=== PATIENT | female | born 1980 | race Caucasian/White ===

== ENCOUNTER → 2020-06-16 13:21 | Outpatient (BNVA) | payer OTHER, SELFPAY | PROVIDERS: PCP Pediatrics; Visit Provider Nurse Practitioner | DX: K21.9 Gastro-esophageal reflux disease without esophagitis (principal); R06.00 Dyspnea, unspecified; R07.89 Other chest pain | CPT/HCPCS: 99202 ==

== ENCOUNTER → 2020-07-02 16:00 | Outpatient (BNVA) | payer OTHER, SELFPAY | PROVIDERS: PCP Pediatrics; Visit Provider Nurse Practitioner | DX: Z76.89 Persons encountering health services in other specified circumstances (principal) ==

== ENCOUNTER → 2020-07-17 10:45 | Outpatient (BNVA) | payer OTHER, SELFPAY | PROVIDERS: PCP Pediatrics; Visit Provider Nurse Practitioner Family | DX: R06.00 Dyspnea, unspecified (principal); R07.89 Other chest pain; K21.9 Gastro-esophageal reflux disease without esophagitis | CPT/HCPCS: 93005; 99202 ==

== ENCOUNTER → 2020-08-15 08:33 | Outpatient (REF) | payer OTHER, SELFPAY ==
--- NOTE | ~2020-08-15 | XR_ITS ---
EXAMINATION: XR CHEST CLINICAL INFORMATION: R07.89 - Other chest pain COMPARISON: None TECHNIQUE: 2 views of the chest were obtained. FINDINGS: The lungs are clear. There is no pneumothorax, pleural reaction, airspace consolidation, or effusion. No groundglass opacity. The heart is normal in size and the hilar and mediastinal contours are normal. Bony structures are unremarkable. XR/XR chest 2V IMPRESSION: Unremarkable examination.
--- NOTE | 2020-08-15 08:40 | CA_ITS ---
Transthoracic Echocardiogram Patient (Last, First, Middle): Mahsa Thompson, Gender: Female Date of : 1980 Age: 39 Procedure Date: 08/15/2020 Procedure Type: Transthoracic Echocardiogram Location: OP Height: 157. cm Weight: 71. kg BSA: 1.72 m2 Heart Rate: bpm BP: 110 / 71 mmHg Senior Director Of [employer]: BRANT Referring MD: Jenna Taylor NP-Marie Member Service Specialist: Cuauhtemoc Lemus MD Symptoms: R06.02 - Shortness of breath Study Quality: Fair ECG Rhythm: Sinus Conclusions: - Normal study Findings Left Ventricle Normal left ventricular size, thickness, and systolic function. The visually estimated ejection fraction is between 65-70%. Diastolic function is normal for age. Right Ventricle Normal right ventricular cavity size and systolic function. Atria Both atria are normal in size. Interatrial shunt cannot be excluded. Aortic Valve Normal aortic valve structure and function. There is no aortic valve stenosis. There is no aortic valve regurgitation. Mitral Valve Normal mitral valve structure and function. There is trace mitral valve regurgitation. There is no mitral valve stenosis. Pulmonic Valve The pulmonic valve was not well visualized. Tricuspid Valve Likely normal tricuspid valve structure and function. There is trace tricuspid valve regurgitation. The right ventricular systolic pressure is normal. The right ventricular systolic pressure is 25 mmHg. Normal right atrial pressure. There is no evidence of pulmonary hypertension. Great Vessels All visible segments of the aorta are normal in size. The pulmonary artery was not well visualized. Venous The inferior vena cava is normal in size and collapses greater than 50% with inspiration. Pericardium/Pleural There is no evidence of pericardial effusion. Prior Study Comparison No prior study available for comparison. Measurements 2D Linear Measurements IVSd: 0.75 0.6-0.9/0.6-1.0 cm LVIDd: 4.22 3.9-5.3/4.2-5.9 cm LVIDd Index: 2.45 2.4-3.2/2.2-3.1 cm/m2 LVIDs: 2.69 2.0-3.6 cm LVPWd: 0.61 0.7-1.1 cm Ao Root: 2.50 2.1-3.5 cm LA Diam: 2.80 2.7-3.8/3.0-4.0 cm LAIDs Index: 1.63 1.5-2.3 cm/m2 LV Mass: 102.73 67-162/88-224 g LV Mass Index: 59.73 43-95/49-115 g/m2 LVOT Diam: 1.90 3.0+(-)1.3 cm 2D Systolic Function EF 4C: 71.60 >55% Mitral Valve MV Pk E: 0.95 MV PK A: 0.56 MV Decel Time: 194.00 E/A: 1.70 E'Lateral: 16.40 E'Medial: 13.30 E/E' Med: 7.20 E/E' Lat: 5.80 PHT: 57.00 MVA PHT: 3.86 Decel Pitt: 4.91 Aortic Valve AoV Pk Joby: 1.48 AoV Pk Grad: 9.00 LVOT LVOT Pk Joby: 1.32 LVOT Mn Joby: 0.81 LVOT VTI: 0.25 LVOT Pk Grad: 7.00 LVOT Mn Grad: 3.00 LVOT Diam: 1.90 LVOT Area: 2.84 Diastolic Function MV Pk E: 0.95 MV Pk A: 0.56 E/A: 1.70 E'Medial: 13.30 E/E' Med: 7.20 E' Laterial: 16.40 E/E' Lat: 5.80 Tricuspid Valve TR Pk Joby: 2.32 TR Pk Grad: 22.00 RA Press: 3.00 RVSP: 25.00 Great Vessels Aorta Ao Root-2D: 2.50 2.0-3.7 cm Ao Asc: 2.70 2.1-3.4 cm Updated in Other Vendor System with Status of Final Cuauhtemoc Lemus MD electronically signed on 08/15/2020 4:23:21 PM with status of Final
--- NOTE | 2020-08-15 08:40 | CA_ITS ---
Acquisition Time: 2020-08-15 10:16:18 Total Exercise Time: 00:07:47 Test Indications: K21.9 Medications: SEE CHART Protocol: MELISSA Max HR: 169 BPM 93% of Pred: 181 BPM Max BP: 154/076 mmHG Max Work Load: 9.7 METS Exercise stress test using Melissa protocol, total of 7 min 47 sec. Pt tolerated well. METS 9.70, TAPHR up 93 %. to Denies any anginal sx. EKG with no arrhythmias, no ischemic changes seen during exercsice or in recovery. Normotensive response to exercise. Test reviewed with Dr. Lemus. Referred By: Jenna Taylor Overread By: Marj Price
== END ==
LOC: HO.CARD 08:33
PROVIDERS: PCP Pediatrics; Visit Provider Nurse Practitioner Family
DX: R07.9 Chest pain, unspecified (principal); R06.02 Shortness of breath; K21.9 Gastro-esophageal reflux disease without esophagitis
CPT/HCPCS: 71046; 93017; 93306

== ENCOUNTER → 2020-08-20 10:00 | Outpatient (BNVA) | payer OTHER, SELFPAY | PROVIDERS: PCP Pediatrics; Visit Provider Nurse Practitioner Family ==

== ENCOUNTER 2020-10-09 08:14 | Outpatient (REF) | payer OTHER, SELFPAY ==
--- NOTE | ~2020-10-09 | CT_ITS ---
EXAMINATION: CT ABDOMEN AND PELVIS WITH CONTRAST CLINICAL INFORMATION: Unspecified abdominal pain. COMPARISON: Chest x-ray August 2020 TECHNIQUE: Multidetector volumetric images were obtained from the superior aspect of the liver through the pubic symphysis following administration 85 mL of Omnipaque 350 intravenous contrast. Sagittal and coronal reformatted images were obtained on the technologist's workstation. Oral contrast: No. This CT examination was performed using dose optimization techniques as appropriate, variously including the following: *Automated exposure control *Adjustment of mA and/or kV according to patient size (this includes techniques or standardized protocols for targeted exams where dose is matched to indication/reason for exam; i.e. extremities or head) *Use of iterative reconstruction technique DLP: 429 mGy-cm FINDINGS: LUNG BASES: The visualized lung bases are unremarkable. LIVER, GALLBLADDER, AND BILIARY TREE: The liver is normal in size, shape, and attenuation. No focal hepatic lesion or biliary ductal dilatation is present. The gallbladder is unremarkable with no evidence of radiopaque gallstones, gallbladder wall thickening, or obvious pericholecystic inflammatory changes. PANCREAS: Unremarkable. SPLEEN: Unremarkable. ADRENAL GLANDS: Unremarkable. KIDNEYS AND URETERS: The kidneys are normal in size, shape, and attenuation. No hydronephrosis, hydroureter, or calculi seen. No perinephric stranding. BLADDER: Unremarkable. GASTROINTESTINAL TRACT: The small and large bowel are unremarkable. The appendix is unremarkable. ABDOMINAL WALL: No significant hernia is appreciated. LYMPH NODES: Normal. VASCULAR: Unremarkable. PELVIC VISCERA: 3 cm right ovarian cyst noted. OSSEOUS STRUCTURES: Unremarkable. CT/CT abdomen pelvis w con IMPRESSION: No definite etiology for the patient's reported symptoms. Incidental note made of a simple-appearing right ovarian cyst.
== END 2020-10-09 08:15 | disposition home or self-care (01) ==
LOC: HO.CT 08:14
PROVIDERS: Visit Provider Nurse Practitioner
DX: R10.9 Unspecified abdominal pain (principal); K21.9 Gastro-esophageal reflux disease without esophagitis
CPT/HCPCS: 74177

== ENCOUNTER → 2020-10-21 08:52 | Outpatient (BNVA) | payer OTHER, SELFPAY | PROVIDERS: PCP Pediatrics; Visit Provider Nurse Practitioner ==

== ENCOUNTER 2020-10-29 10:07 | Outpatient (REF) | payer OTHER, SELFPAY ==
--- NOTE | ~2020-10-29 | FL_ITS ---
EXAMINATION: XR GI SERIES CLINICAL INFORMATION: Abdominal pain. COMPARISON: None TECHNIQUE: The patient was given effervescent granules mixed with water which were followed by thick and thin separations of barium vertebral contrast evaluation. FINDINGS: The esophageal mucosal pattern is normal. No stricture or ulceration is identified. No hiatal hernia is seen. There is some mild thickening of the gastric rugal folds. The duodenal bulb and sweep appear normal. No gastroesophageal reflux was elicited during the examination. FLUOROSCOPY TIME: 1.5 mm DOSE AREA PRODUCT: 12.045 uGy-m2 (microgray-meter squared) FL/FL upper GI series IMPRESSION: Mild nonspecific thickening of the gastric rugal folds without a discrete lesion. No reflux. Otherwise, remainder of the study is normal.
== END 2020-10-29 10:08 | disposition home or self-care (01) ==
LOC: HO.XRAY 10:07
PROVIDERS: Visit Provider Nurse Practitioner
DX: R10.9 Unspecified abdominal pain (principal); K21.9 Gastro-esophageal reflux disease without esophagitis
CPT/HCPCS: 74240

== ENCOUNTER → 2020-11-06 08:47 | Outpatient (BNVA) | payer OTHER, SELFPAY | PROVIDERS: PCP Pediatrics; Visit Provider Nurse Practitioner ==

== ENCOUNTER → 2020-11-20 13:28 | Outpatient (REF) | payer OTHER, SELFPAY ==
--- NOTE | ~2020-11-20 | NM_ITS ---
EXAMINATION: NUCLEAR MEDICINE HEPATOBILIARY SCAN WITH CCK CLINICAL INFORMATION: Functional interstitial disorder. COMPARISON: CT abdomen and pelvis 10/09/2020 TECHNIQUE: Intravenous administration of 5 mCi of 99m Tc mebrofenin, imaging over right upper quadrant was obtained up to 60 minutes. At 60 minutes 1.1 mcg of CCK was administered and further imaging was obtained up to 30 minutes. FINDINGS: There is prompt hepatic uptake without any focal defects. Common bile duct is visualized by 10 minutes. Small bowel activity is visualized by 14 minutes. Gallbladder is visualized by 34 minutes. Post CCK gallbladder ejection fraction at 30 minutes is 87%. NM/NM hepatobiliary w pharm IMPRESSION: Normal hepatic uptake without focal defects. Patent CBD and cystic duct. Normal gallbladder ejection fraction at 30 minutes measuring 87%.
== END ==
LOC: HO.NUCMED 13:28
PROVIDERS: PCP Pediatrics; Visit Provider Nurse Practitioner
DX: K59.9 Functional intestinal disorder, unspecified (principal)
CPT/HCPCS: 78227; A9537; J2805

== ENCOUNTER → 2020-12-26 15:22 | Outpatient (BNVA) | payer OTHER, SELFPAY | PROVIDERS: PCP Pediatrics; Visit Provider Nurse Practitioner ==

== ENCOUNTER 2020-12-31 11:02 | Outpatient (REF) | payer OTHER, SELFPAY ==
[2020-12-31 13:02] LABS: Blood Urea Nitrogen 16 mg/dL (9-16); Estimated Glomerular Filt Rate > 60
[2021-01-04 21:17] LABS: Gastrin 115 pg/mL (<=100)
== END 2020-12-31 11:03 | disposition home or self-care (01) ==
LOC: HO.LAB 11:02
PROVIDERS: PCP Pediatrics; Visit Provider Nurse Practitioner
DX: R06.00 Dyspnea, unspecified (principal); K21.9 Gastro-esophageal reflux disease without esophagitis; R10.9 Unspecified abdominal pain
CPT/HCPCS: 36415; 82565; 82941; 84520

== ENCOUNTER → 2021-02-10 15:20 | Outpatient (BNVA) | payer OTHER, SELFPAY | PROVIDERS: PCP Pediatrics; Visit Provider Nurse Practitioner ==

== ENCOUNTER → 2021-03-30 13:55 | Outpatient (BNVA) | payer OTHER, SELFPAY | PROVIDERS: PCP Pediatrics; Visit Provider Nurse Practitioner ==

== ENCOUNTER → 2021-09-08 15:18 | Outpatient (BNVA) | payer OTHER, SELFPAY | PROVIDERS: PCP Pediatrics; Referring Provider Pediatrics; Visit Provider Nurse Practitioner | DX: K59.9 Functional intestinal disorder, unspecified (principal); K21.9 Gastro-esophageal reflux disease without esophagitis; G71.02 Facioscapulohumeral muscular dystrophy; R06.00 Dyspnea, unspecified | CPT/HCPCS: 99212 ==

== ENCOUNTER 2023-12-22 13:22 | Emergency (ER) | payer OTHER, SELFPAY ==
[2023-12-22 13:44] VITALS: BP 125/86; PULSE 61; RESP 16; TEMP 36.4; O2SAT 100; BMI 18.3
--- NOTE | 2023-12-22 13:44 | ED_ITS ---
HPI - Eye Problem General Chief complaint: Eye Problems Stated complaint: Eye pain, blurry vision Time Seen by Provider: 12/22/23 15:48 Source: patient Mode of arrival: ambulatory Limitations: no limitations History of Present Illness ED Provider: LEEANN MESA PA-C HPI Narrative: 43-year-old female with no significant past medical history presents to the ED today for evaluation of left eye redness/swelling times 24 hours. Reports left eye irritation/gritty sensation last night after going for a run. Admits that when she laid down for bed last night her eye began to tear excessively. Woke up this morning with increased sensitivity to light along with redness. Reports appointment with PCP this morning. Her physician noted concern for orbital cellulitis and advised patient to come to the ED for further evaluation. She does not wear corrective lenses. She reports associated nasal congestion. His recent sick contacts. Denies recent upper respiratory infection. Patient d enies fever, chills, vision changes, pain on eye movements, N/V. Related Data Home Medications ?Medication ?Instructions ?Recorded ?Confirmed cyanocobalamin (vitamin B-12) mcg IM 09/08/21 1,000 mcg/mL injection solution folic acid 1 mg tablet 1 mg PO DAILY 09/08/21 minocycline 100 mg capsule 100 mg PO Q12H 09/08/21 propranolol 10 mg tablet 10 mg PO BID 09/08/21 rizatriptan 10 mg tablet 10 mg PO 09/08/21 Previous Rx's ?Medication ?Instructions ?Recorded levothyroxine 100 mcg capsule 100 mcg PO DAILY #30 caps 06/16/20 Dexilant 60 mg capsule, delayed 60 mg PO BID 30 days #60 caps 10/20/21 release (dexlansoprazole) cetirizine 0.24 % eye drops in a 1 drp ophthalmic (eye) BID 7 days 12/22/23 dropperette #30 ea Allergies Allergy/AdvReac Type Severity Reaction Status Date / Time Seasonal Allergies Allergy Mild unknown Verified 12/22/23 13:50 Review of Systems Review of Systems: Constitutional: No fever, chills, fatigue, night sweats, weight changes ENT/Mouth: No ear pain, hearing loss, nasal congestion, sinus pain, rhinorrhea, sore throat Eyes: No eye pain, vision changes, discharge, +eye redness/ swelling Cardio: No chest pain, palpitations, CHAVES, orthopnea, peripheral edema Pulm: No SOB, cough, sputum, wheezing, dyspnea, hemoptysis GI: No nausea, vomiting, hematemesis, abdominal pain, diarrhea, constipation, hematochezia, melena : No irregular bleeding, dysuria, frequency, urgency, hesitancy, hematuria, flank pain, urinary flow changes, urinary incontinence or retention MSK: No back pain, neck pain, joint pain, myalgias Skin: No lesions, rashes Neuro: No weakness, numbness, paresthesias, LOC, dizziness, headache Psych: No anxiety/panic, depression, SI/HI, AH/VH All other systems reviewed and are negative. [facility] Past Medical History Attestation statement: The following information was validated with the patient. Source: old records reviewed and nursing notes reviewed Medical History Shortness of breath Surgical History History of esophagogastroduodenoscopy Family History Family History Mother Hypothyroid Allergies Father Multiple myeloma High blood pressure Coronary stent patent Obesity Cancer Brother Allergies Paternal Grandfather Colon cancer Social History Social History Household Members: Family Alcohol intake: current Alcohol intake frequency: does not drink Second Hand Smoke Exposure: Yes (as a child) Advance Directives: No Advance Directives Information Provided: Yes Physical Exam Vital Signs: Vital Signs: Last Vital Signs Temp 97.6 F 12/22/23 13:44 Pulse 61 12/22/23 13:44 Resp 16 12/22/23 13:44 BP 125/86 12/22/23 13:44 Pulse Ox 100 12/22/23 13:44 O2 Del Method Room Air 12/22/23 13:44 BMI result Body Mass Index 18.3 Vital signs stable, afebrile Const: Other: Patient lying on exam bed lights off and the classes on General: cooperative, healthy appearing, comfortable and no acute distress Orientation/consciousness: patient oriented x3 Limitations: no limitations HEENT: Head: Yes normal to inspection, Yes No palpable skull fracture present, Yes normocephalic and Yes atraumatic Ears: hearing grossly normal bilaterally, external ears normal, TM's normal bilaterally, EAC's normal, mastoids normal and no periauricular adenopathy Face and sinus: Yes normal facial exam and Yes sinuses nontender Eyes: Other: + left eye without periorbital swelling. There is injected conjunctiva with chemosis an excessive tearing. No crusting. Positive photophobia. PERRLA. No hyphema. No obvious abrasion or foreign body. EOMs intact without pain. + no reuptake noted on fluorescein/tetra nelly examination. IOP OD 16. IOP OS 14. Visual acuity OD 202/20. Visual acuity OS 20/25. Visual acuity bilateral 20/20. Direct Ophthalmoscopy: no papilledema, fundi normal bilaterally and anterior chamber normal Neck: Neck: Yes normal visual inspection, Yes full ROM and Yes no lymphadenopathy Resp: Effort & Inspection: normal respiratory effort and able to speak in comp lete sentences Auscultation: clear to auscultation bilaterally Cardio: Rate: regular rate Rhythm: regular rhythm Skin: General skin exam: no rashes or lesions noted Neuro: General: patient oriented x3, gait normal and tone normal Course Course Course Narrative: This is a Rapid Medical Exam performed in triage by Tayla Sheffield PA-C. Full HPI, ROS and PE to be performed by primary ED provider. 43 year-old F w/ PMHx GERD presenting to the ED c/o L eye pain, photophobia, tearing, FB sensation & pain since last night, sent to ED by PCP. denies wearing glasses or contacts. PE: wearing sunglasses, L eye conjunctival injection appreciated. EOMI w/o entrapment or pain. no orbital cellulitis Plan: VA, fluorescein staining Reevaluation(s) Reevaluation #1: 1650-- intra-ocular pressure is normal > glaucoma unlikely. No periorbital edema or pain with EOMs. Extremely low suspicion for periorbital or orbital cellulitis. Tetracaine/fluorescein exam unremarkable. No concern for corneal abrasion or foreign body. Physical exam is consistent with allergic conjunctivitis. Cetirizine eyedrops will be sent to pharmacy for treatment. Educated on cold compresses. Referral to Ophthalmology provided. Patient has remained stable throughout ED visit today. Discussed worrisome signs and symptoms and when to return to the ED. All questions answered at this time. Patient is agreeable with disposition and stable for discharge. Medications Administered Discontinued Medications Generic Name Dose Route Start Last Admin Trade Name Shreya PRN Reason Stop Dose Admin Fluorescein Sodium 1 strip 12/22/23 13:46 12/22/23 15:39 Fluorescein Sodium Strip EYE-LEFT 12/22/23 13:47 1 strip ONCE ONE Administration Tetracaine HCl 1 drop 12/22/23 13:46 12/22/23 15:40 Tetracaine Hcl/Pf 0.5% Oph Janet 4 Ml Drops EYE-LEFT 12/22/23 13:47 1 drop ONCE ONE Administration Medical Decision Making Medical Decision Making MDM Narrative: 43-year-old female with no significant past medical history presents to the ED today for evaluation of left eye redness/swelling times 24 hours. Vital signs stable. She is nontoxic appearing in no acute distress. Lying comfortably on exam bed with lights down and sunglasses on. left eye without periorbital swelling. There is injected conjunctiva with chemosis an excessive tearing. No crusting. Positive photophobia. PERRLA. No hyphema. No obvious abrasion or foreign body. EOMs intact without pain. no reuptake noted on fluorescein/tetracaine examination. IOP OD 16. IOP OS 14. Visual acuity OD 202/20. Visual acuity OS 20/25. Visual acuity bilateral 20/20. Sinuses nontender. Differential diagnosis includes allergic conjunctivitis, viral conjunctivitis, bacterial conjunctivitis, corneal abrasion. Unlikely corneal foreign body, glaucoma, globe rupture, periorbital or orbital cellulitis, blowout fracture. Plan for visual acuity, tetracaine/fluorescein exam, IOP, re-evaluation. Differential Diagnosis Differential Diagnoses: The differential diagnosis associated with the presentation includes As above Admission/Observation Not indicated Prescription Management I considered prescription management with: Other (Cetirizine drops) Social Determinants Patient?s care significantly limited by Social Determinants of Health including: Other Social Determinant of Health Critical Care Time Critical Care Time Critical Care Time: No Discharge Plan Discharge Clinical Impression: Acute allergic conjunctivitis of left eye Patient Disposition: Home, Self-Care Instructions: How to Use Eye Drops (ED), Conjunctivitis (ED) Additional Instructions: Your physical exam is consistent with allergic conjunctivitis. Treatment for this is with antihistamines. Cetirizine as an antihistamine eye drop that has been sent to your pharmacy. Apply this twice daily for 7 days to treat eye irritation. Do not use this medication for greater than 2 weeks as this may cause a rebound reaction with worsening redness and pain You may apply cool compresses to the eye as well. 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 A referral has been provided to you. You may call them to establish care. Follow-up with PCP as needed. Return with new or worsening symptoms. The case of an emergency call 911. Prescriptions: New cetirizine 0.24 % dropperette 1 drp ophthalmic (eye) BID 7 Days Qty: 30 0RF No Action levothyroxine 100 mcg capsule 100 mcg PO DAILY Qty: 30 0RF propranolol 10 mg tablet 10 mg PO BID cyanocobalamin (vitamin B-12) 1,000 mcg/mL solution IM minocycline 100 mg capsule 100 mg PO Q12H folic acid 1 mg tablet 1 mg PO DAILY rizatriptan 10 mg tablet 10 mg PO Dexilant 60 mg capsule,biphase delayed releas 60 mg PO BID 30 Days Qty: 60 6RF Referrals: Maria De Jesus Marrero MD [Primary Care Provider] - Zi Andino [Physician] - Print Language: French
[2023-12-22] MEDS: Fluorescein Sodium STRIP 1 STRIP EYE-LEFT (15:39)
[2023-12-22] MEDS: Tetracaine HCl/PF 0.5% Oph Sol 4 ML DROPS 1 DROP EYE-LEFT (15:40)
[2023-12-22 17:04] VITALS: BP 128/83; PULSE 58; RESP 16; TEMP 36.9; O2SAT 100
== END 2023-12-22 17:04 | disposition home or self-care (01) ==
PROVIDERS: Emergency Provider Emergency Medicine; PCP Internal Medicine
DX: H10.12 Acute atopic conjunctivitis, left eye (principal)
CPT/HCPCS: 99283

== ENCOUNTER 2025-04-08 11:42 | Outpatient (AMB) | payer OTHER, SELFPAY ==
--- NOTE | 2025-04-08 11:43 | A.OFFVIS_ITS ---
Intake Visit Reasons: worsening symptoms Allergies Seasonal Allergies Allergy (Mild, Verified 12/22/23 13:50) unknown HPI Comments Details: 44 yo woman with B12 def, migraine, anxiety, insomnia, and fascioscapular muscular dystrophy. She had EMG/NCS done by Dr. Lange at [facility] who found subtle abnormalities in left infraspinatous, bicepts, deltoid, ext dig, and flexor carpi ulnaris. At [facility], she was told that she might not have this condition. She was a runner and was walking or running miles a day. She was here with new complain of right-sided pain that appeared couple of days ago. A few days before, she had injured her neck from doing too much physical activity. It was excruciating and severe and she had seen 2 urgent cares already. Pain was in right scapular area but also radiating to her right upper and lower arm going to the thumb area. Arm was also weak. She was given a Toradol injection and Tylenol. She was not any better. [facility] Medical History Shortness of breath Surgical History History of esophagogastroduodenoscopy Family History Mother Hypothyroid Allergies Father Multiple myeloma High blood pressure Coronary stent patent Obesity Cancer Brother Allergies Paternal Grandfather Colon cancer Social History Household Members: Family Alcohol intake: current Alcohol intake frequency: does not drink Second Hand Smoke Exposure: Yes (as a child) Review of Systems Const Details: No recent trauma. No change in bowel bladder pattern or walking. Physical Exam Neuro Other: Mental Status: Alert and oriented to person, place, and time. Normal attention. Normal spontaneous speech, fluency, and comprehension. No obvious issues with mood and memory. Affect is appropriate. Cranial Nerves: CN II: Visual nielsen full to confrontation, visual acuity intact. CN III, IV, : Pupils equal, round, reactive to light and accommodation. Extraocular movements are normal. CN V: Facial sensation is normal. CN VII: Facial movements symmetrical. CN VIII: Hearing intact to bedside conversation is normal. CN IX, X: Palate elevates symmetrically. CN XI: Shoulder shrug and head turn symmetrical. CN XII: Tongue midline without atrophy or fasciculations. Motor: Deep tendon reflexes are good 2+ in both biceps, brachioradialis, fingers, with trace in triceps. Med sign is present bilaterally. Knee reflexes are brisk bilaterally. Ankle reflexes are 2+ with equivocal plantars. There was moderate right deltoid weakness. Periscapular musculature is atrophied. Coordination: [id number] and [id number] testing normal. No dysmetria. Gait and Station: No obvious gait abnormality. No ataxia or instability. Sensory: Intact to light touch, pinprick, and vibration. Romberg is negative. Extrapyramidal: Full facial expressions and blinking. No rigidity. Movements are appropriate with no tremor or abnormality. Speech: Normal; no dysarthria or tremor. Assessment & Plan Assessment & Plan (1) Muscular dystrophy, facioscapulohumeral: Comment: Meds tried for insomnia: Trazodone, Temazepam EMG/NCS MICHAEL ext by Dr. Lange at [facility] in Jun 2021: mild abnormalities in left side suggestive of myopathy, early CTS NCV/EMG UE at off in May 2021: No sign of neuropathy was noted on this test. Labs at [facility] in 2020: Covid neg, Lyme neg, CBC ok, B12 <150, TSH 3.14, SANTOSH ok, ACh R Ab neg, CPK 38 CT brain WO at [facility] in Apr 2021: WNL MRI brain WO at [facility] in Apr 2021: WNL CTA brain at [facility] in Apr 2021: WNL EKG at [facility] in 2020: WNL Chest XR at [facility] in 2020: WNL MRI brain WO at [facility] in January 2016: [place] MRI brain WO at [facility] in Oct 2014: [place] MRI C spine WO at [facility] in November 2015: [place] Code(s): G71.02 - Facioscapulohumeral muscular dystrophy Category: Medical (2) Insomnia: Code(s): G47.00 - Insomnia, unspecified Category: Medical Qualifiers: Insomnia type: due to medical condition Qualified Code(s): G47.01 - Insomnia due to medical condition (3) Migraine without aura, not intractable, without status migrainosus: Code(s): G43.009 - Migraine without aura, not intractable, without status migrainosus Category: Medical (4) Anxiety: Code(s): F41.9 - Anxiety disorder, unspecified Category: Medical (5) Cervical disc disorder at C5-C6 level with radiculopathy: Code(s): M50.122 - Cervical disc disorder at C5-C6 level with radiculopathy Category: Medical Plan Impression: a: Muscular dystrophy b: Migraine w/o aura c: Insomnia d: Anxiety e: New severe right neck and arm pain suggestive of mid cervical radiculomyopathy Rec: a: Propranalol 20mg bid b: Rizatriptan 10mg one a day as needed for headache c: Zolpidem ER 12.5 mg one at bedtime, as needed d: Escitaloprim 20mg one a day e: MRI C spine w/o cont f: Prednisone was consider but she was already taking a steroid. Stronger pain medicine was also discussed but she did not want to take any medicine at this time. Orders: Orders MR cervical spine wo con Today M50.122 - Cervical disc disorder at C5-C6 level with radiculopathy Coding Level of Care Code Est Pt Level 5 (17461) Diagnoses Muscular dystrophy, facioscapulohumeral G71.02 Insomnia due to medical condition G47.01 Insomnia type: due to medical condition Migraine without aura, not intractable, without status migrainosus G43.009 Anxiety F41.9 Cervical disc disorder at C5-C6 level with radiculopathy M50.122
--- OUTSIDE RECORDS SUMMARY | 2025-04-08 14:16 | XMS_ITS | Encounter Summary ---
Author Organization [employer] Address [address] [facility] [address] [place] [address] Care Team Providers Care Shear Assembler Name Role Phone Fletcher Little Unavailable Unavailable Kalyn Salguero Unavailable Unavailable Encounter Details Date Type Department Care Team (Late st Contact Info) Description 06/16/2022 Abstract [place] [facility] Dental [address] [place] [address] Dental, Provider, DDS Social History Tobacco Use Types Packs/Day Years Used Date Smoking Tobacco: Never Assessed Comments Unknown Sex and Gender Information Value Date Recorded Sex Assigned at Female 11/01/2022 9:33 AM EDT Legal Sex Female 5:36 PM EDT Gender Identity Female 11/01/2022 9:33 AM EDT Sexual Orientation Choose not to disclose 2022 9:33 AM EDT documented as of this encounter Plan of Treatment Upcoming Encounters Date Type Department Care Team (Late st Contact Info) Description 08/08/2025 12:00 PM EST Office Visit [place] [facility] DENTAL [address] [place] [address] Cydney Cornell documented as of this encounter Procedures Procedure Name Priority Date/Time Associated Diagnosis Comments PROPHYLAXIS - ADULT Routine 05/10/2022 1 2:00 AM EST PERIODIC ORAL EVALUATION - ESTABLISHED PATIENT Routine 05/10/2022 12:00 AM EST CASE PRESENTATION, DETAILED AND EXTENSIVE TREATMENT PLANNING Routine 05/10/2022 12:00 AM EST documented in this encounter Visit Diagnoses Not on filedocumented in this encounter Care Teams Shear Assembler Relationship Specialty Start Date End Date Fletcher Little Community Health Worker 10/18/23 06/21/24 Kalyn Salguero Community Health Worker 06/22/24 documented as of this encounter
--- OUTSIDE RECORDS SUMMARY | 2025-04-08 14:16 | XMS_ITS | Clinical Summary ---
Author Organization [employer] Address [address] [place] [address] 7[address] [place] [address] Care Team Providers Care Actuarial Associate Name Role Phone Kalyn Salguero Unavailable Unavailable Allergies No known active allergies Medications bimatoprost (Latisse) 0.03 % ophthalmic solution APPLY TO THE SKIN OF THE UPPER EYELID AT THE BASE OF THE EYELASHES AT BEDTIME 3 Active [facility] Coenzyme Q-10 100 MG capsule TAKE 3 CAPSULE (300MG) BY MOUTH TWICE A DAY 3 Active Dexilant [address] capsule Take 1 capsule by mouth 2 times daily. 3 Active levothyroxine (Synthroid, Levoxyl) 100 MCG tablet Take 100 mcg by mouth in the morning. 3 Active metoclopramide (Reglan) 5 MG tablet TAKE 1 TABLET BY MOUTH 4 TIMES A DAY FOR 10 DAYS NEEDED FOR NAUSEA 3 Active propranolol (Inderal) 10 MG tablet 3 Active rizatriptan (Maxalt) 10 MG tablet TAKE 1 TABLET BY MOUTH DAILY . MAY REPEAT IN 2 HOURS IF NEEDED 3 Active Active Problems No known active problems Encounters Date Type Department Care Team Description 02/01/2025 12:00 PM EDT Office Visit [facility] DENTAL [address] [place] [id number] Reba Cohen LLD Encounter for dental examination (Primary Dx) from Last 3 Months Social History Tobacco Use Types Packs/Day Years Used Date Smoking Tobacco: Never Passive Smoke Exposure: Never Smokeless Tobacco: Never Tobacco Cessation:Counseling Given: Not Answered Alcohol Use Standard Drinks/Week Comments Never 0 (1 standard drink = 0.6 oz pur e alcohol) Comments Unknown Sex and Gender Information Value Date Recorded Sex Assigned at Female 11/01/2022 9:33 AM EDT Legal Sex Female 5:36 PM EDT Gender Identity Female 11/01/2022 9:33 AM EDT Sexual Orientation Choose not to disclose 2022 9:33 AM EDT Last Filed Vital Signs Vital Sign Reading Time Taken Comments Blood Pressure 115/82 02/01/2025 12:19 PM EDT Pulse - - Temperature - - Respiratory Rate - - Oxygen Saturation - - Inhaled Oxygen Concentration - - Weight - - Height - - Body Mass Index - - Plan of Treatment Upcoming Encounters Date Type Department Care Team (Late st Contact Info) Description 08/08/2025 12:00 PM EST Office Visit [place] [facility] DENTAL [address] [place] [address] Cydney Cornell Health Maintenance Due Date Last Done Comments Depression Screening 1980 HIV Screening 1980 SDOH Screening 1980 Disability Screening 1980 Alcohol/Substance Use Screening 1992 Family Planning (PISQ) 09/09/1995 HPV Vaccines (1 - 3-dose series) 09/09/1995 Hepatitis C Screening 1998 Hepatitis B Vaccines (1 of 3 - 19+ 3-dose series) 09/09/1999 Pap Smear 2001 Cervical Cancer Screening 2010 HPV/Cotest 2010 Mammogram 2020 Dental X-Ray: Full Mouth 04/18/2024 021, 05/11/2013, 01/07/2007, Additional history exists Influenza Vaccine (#1) 2025 , 04/15/2023, 04/15/2023, Additional history exists Tobacco Screening 07/20/2025 07/20/2024 Dental Oral Exam 08/05/2025 02/01/2025, , 01/11/2024, Additional history exists Dental Prophylaxis 08/05/2025 02/01/2025, 0 07/20/2024, 01/11/2024, Additional history exists Dental X-Ray: Bitewings 02/02/2026 02/02/20 25, 01/11/2024, 11/12/2022, Additional history exists DTaP/Tdap/Td Vaccines (4 - Td or Tdap) 11/18/2029 11/19/2019, 11/19/2019, 08/10/2011 Zoster Vaccines (1 of 2) 2030 RSV Patients and Patients Aged 60 years or older (1 - 1-dose 75+ series) 09/09/2055 COVID-19 Vaccine Completed 08/03/2024, , 03/19/2022, Additional history exists HIB Vaccines Aged Out No longer eligi ble based on patient's age to complete this topic Hepatitis A Vaccines Aged Out No long er eligible based on patient's age to complete this topic IPV Vaccines Aged Out No longer eligi ble based on patient's age to complete this topic Meningococcal B Vaccine Aged Out No l onger eligible based on patient's age to complete this topic Meningococcal Vaccine Aged Out No lizbeth estefanía eligible based on patient's age to complete this topic Pneumococcal Vaccine: Pediatrics (0 to 5 Years) and At-Risk Patients (6 to 49) Years Aged Out No longer eligible based on patient's age to complete this topic RSV under 20 months Aged Out No longe r eligible based on patient's age to complete this topic Rotavirus Vaccines Aged Out No longer eligible based on patient's age to complete this topic Procedures Procedure Name Priority Date/Time Associated Diagnosis Comments ORAL HYGIENE INSTRUCTIONS Routine 2024 12:00 PM EDT BITEWINGS - 4 RADIOGRAPHIC IMAGES Routine 02/01/2025 12:00 PM EDT Full PROPHYLAXIS - ADULT Routine 025 12:00 PM EDT PERIODIC ORAL EVALUATION - ESTABLISHED PATIENT Routine 02/01/2025 12:00 PM EDT INTRAORAL - COMPLETE SERIES OF RADIOGRAPHIC IMAGES Routine 04/17/2021 12:00 AM EDT from Last 3 Months or Most Recently Relevant to Health Maintenance Insurance [facility] MEDICAID STAND ADULT DENTAL - [facility] FULL (MEDICAID) Care Teams Actuarial Associate Relationship Specialty Start Date End Date Kalyn Salguero Community Health Worker 06/22/24
--- OUTSIDE RECORDS SUMMARY | 2025-04-08 14:16 | XMS_ITS | Clinical Summary ---
Author Organization [facility] Address [address] [address] Phone Care Team Providers Care Physician Neonatology Name Role Phone Danny Sherman MD Primary Care Provider [phone] Hien Ramírez MD Unavailable [phone] Allergies No known active allergies Medications cyanocobalamin, vitamin B-12, (B-12 COMPLIANCE) 1,000 mcg/mL Kit Inject 1,000 mcg as directed every 28 days. Use as directed Active levothyroxine (SYNTHROID) 100 mcg SolR 50 mcg daily. Active folic acid (FOLVITE) 1 MG tablet Take 1 mg by mouth daily. Active dexlansoprazole (DEXILANT) 60 mg capsule Take 60 mg by mouth 2 (two) times a day. Active rizatriptan (MAXALT) 10 MG tablet Take 10 mg by mouth as needed for migraine. May repeat in 2 hours if needed Active propranoloL (INDERAL) 10 MG immediate release tablet Take 10 mg by mouth 2 (two) times a day. Active baclofen (LIORESAL) 5 mg tablet TAKE 1 TABLET BY MOUTH TWICE A DAY 180 tablet 1 02/15/2025 Active Encounters Date Type Department Care Team Description 02/14/2025 Refill [facility] Medical Specialties [address] [facility] [place] [address] Benjy Doty PA-C Medication Refill from Last 3 Months Social History Tobacco Use Types Packs/Day Years Used Date Smoking Tobacco: Never Smokeless Tobacco: Never Education Answer Date Recorded Are you interested in more education? Not on germán e 11/07/2022 Are you concerned about learning? Not on file 11/07/2022 No 11/07/2022 No 11/07/2022 Digital Access Answer Date Recorded No 11/28/2022 No 11/28/2022 Reliable internet access at home? Not on file 11/28/2022 Device with a working camera? Not on file Comments Unknown Sex and Gender Information Value Date Recorded Sex Assigned at Female 05/05/2021 3:54 PM EDT Legal Sex Female 6:42 PM EST Gender Identity Female 05/05/2021 3:54 PM EDT Sexual Orientation Straight 05/05/2021 3: 54 PM EDT Last Filed Vital Signs Vital Sign Reading Time Taken Comments Blood Pressure 135/91 07/09/2021 2:55 PM EST Pulse 69 07/09/2021 2:55 PM EST Temperature 37.2 C (98.9 F) 07/09/2021 2:55 PM EST Respiratory Rate - - Oxygen Saturation 100% 07/09/2021 2:55 PM EST Inhaled Oxygen Concentration - - Weight 49.9 kg (110 lb) 07/09/2021 2:55 PM EST p t reported Height 157.5 cm (5' 2 ) 07/09/2021 2:55 PM EST p t reported Body Mass Index 20.12 07/09/2021 2:55 PM EST Plan of Treatment Health Maintenance Due Date Last Done Comments TSH LEVEL 1980 DEPRESSION SCREENING 1992 HEPATITIS C SCREENING 1998 HIV ONE-TIME SCREENING (18-65 YEARS) 1998 PAP SMEAR 2001 MAMMOGRAM 2020 INFLUENZA VACCINE (#1) 2025 , 03/19/2022, 03/20/2021, Additional history exists COVID-19 VACCINE ( season) 2025 04/15/2023, 03/19/2022, 05/26/2021, Additional history exists Adult Td,Tdap Booster 11/18/2029 11/19/2019 , 11/19/2019, 08/10/2011 SMOKING STATUS SCREENING (Once After 26 Yrs) Completed 07/09/2021 HEPATITIS A VACCINES Aged Out No long er eligible based on patient's age to complete this topic HIB VACCINES Aged Out No longer eligi ble based on patient's age to complete this topic MENINGOCOCCAL VACCINES (ACWY) Aged Out No longer eligible based on patient's age to complete this topic MENINGOCOCCAL VACCINES (B) Aged Out N o longer eligible based on patient's age to complete this topic PNEUMOCOCCAL VACCINES (0-49 years) Aged Out No longer eligible based on patient's age to complete this topic Medical Devices Not on file [place] [address] [address] [place] [address] [employer] [place] [address] [place] [address] [employer] [place] [address] [place] [address] [employer] [place] [address] [address] ACO Care Teams Physician Neonatology Relationship Specialty Start Date End Date Danny Sherman MD [address] [place] [id number] PCP - General Internal Medicine 06/03/21 Hien Ramírez MD [address] [place] [address], [address] [address] [email or web address] Gastroenterology 06/03/22 Additional Source Comments The information contained in this document represents components of the legal health record. It is not the complete legal health record.[facility]
--- OUTSIDE RECORDS SUMMARY | 2025-04-08 14:16 | XMS_ITS | Encounter Summary ---
Author Organization [facility] Address [address] [place] [id number] Phone Care Team Providers Care Brazer Production Line Name Role Phone Danny Sherman MD Primary Care Provider [phone] Hien Ramírez MD Unavailable [phone] Encounter Details Date Type Department Care Team (Late st Contact Info) Description 02/10/2023 Procedure Pass [facility] Endoscopy Department [address] [place] [address] Social History Tobacco Use Types Packs/Day Years [...] Orientation Straight 05/05/2021 3: 54 PM EDT documented as of this encounter Plan of Treatment Not on file documented as of this encounter Visit Diagnoses Not on filedocumented in this encounter Care Teams Brazer Production Line Relationship Specialty Start Date End Date Danny Sherman MD [address] [place] [id number] PCP - General Internal Medicine 06/03/21 Hien Ramírez MD [address] [place] [address], [facility] [address] [place] [address] [email or web address] Gastroenterology 06/03/22 documented as of this encounter Additional Source Comments The information contained in this document represents components of the legal health record. It is not the complete legal health record.[facility]
== END 2025-04-08 12:21 | disposition home or self-care (01) ==
LOC: HO.HSM 11:42
PROVIDERS: PCP Internal Medicine; Visit Provider Psychiatry & Neurology Neurology
DX: G71.02 Facioscapulohumeral muscular dystrophy (principal); G47.01 Insomnia due to medical condition; G43.009 Migraine without aura, not intractable, without status migrainosus; F41.9 Anxiety disorder, unspecified; M50.122 Cervical disc disorder at C5-C6 level with radiculopathy
CPT/HCPCS: 99214

== ENCOUNTER → 2025-04-08 11:42 | Outpatient (BNVA) | payer OTHER, SELFPAY | PROVIDERS: PCP Internal Medicine; Visit Provider Psychiatry & Neurology Neurology | DX: G71.02 Facioscapulohumeral muscular dystrophy (principal); G47.01 Insomnia due to medical condition; G43.009 Migraine without aura, not intractable, without status migrainosus; M50.122 Cervical disc disorder at C5-C6 level with radiculopathy; F41.9 Anxiety disorder, unspecified | CPT/HCPCS: 99212 ==

== ENCOUNTER 2025-04-11 18:58 | Emergency (ER) | payer OTHER, SELFPAY ==
--- NOTE | ~2025-04-11 | US_ITS ---
CLINICAL HISTORY: pain, swelling, L > R Venous duplex ultrasound bilateral lower extremity Comparison: None provided Findings: The visualized deep veins are fully compressible with normal Doppler color flow and spectral tracings. No popliteal cyst. IMPRESSION: 1. Negative for bilateral lower extremity deep vein thrombosis. This document has been electronically signed by: Russel Mathis MD on 04/11/2025 22:13:53
[2025-04-11 19:24] VITALS: BP 158/94; PULSE 57; RESP 18; TEMP 36.5; O2SAT 100; BMI 18.3
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
[2025-04-11 19:48] LABS: MANUAL DIFF FLAG NO
[2025-04-11 19:56] LABS: Hematocrit 37.8 % (37.0-47.0); Hemoglobin 11.5 g/dl (12.0-16.0); Imm Gran Abs Auto 0.01 X10*3/uL (0.00-0.03); Imm Gran Pct Auto 0.2 % (0.0-0.4); Lymphocytes Absolute Auto 1.2 X10*3/uL (1.2-4.9); Mean Corpuscular HGB Conc 30.4 g/dl (31.0-35.0); Mean Corpuscular Hemoglobin 27.0 pg (27.0-33.0); Mean Corpuscular Volume 88.7 fL (80.0-98.0); NRBC Abs Auto 0.000 X10*3/uL (0.0-0.012); NRBC Pct Auto 0.0 /100WBC (0.0-0.2); Platelet Count 249 X10*3/uL (160-400); Red Blood Count 4.26 X10*6/uL (4.20-5.50); White Blood Count 6.5 X10*3/uL (4.8-10.8)
[2025-04-11 20:06] LABS: Appearance Urine Clear; Glucose Urine UA Negative (Negative); PH 8.0 (5.0-9.0); Specific Gravity - Urine <= 1.005 (1.005-1.025)
[2025-04-11 20:12] LABS: Alanine Aminotransferase 30 U/L (0-31); Albumin Level 4.4 g/dL (3.5-5.0); Alkaline Phosphatase 64 U/L (39-117); Anion Gap 11 (12-20); Aspartate Amino Transferase 34 U/L (5-31); Blood Urea Nitrogen 11 mg/dL (9-16); Calcium 8.8 mg/dL (8.4-10.2); Carbon Dioxide 27 mmol/L (22-29); Chloride 108 mmol/L (96-108); Creatinine Clr Calc Pharmacy 68.5; Estimated Glomerular Filt Rate > 60; Potassium 4.1 mmol/L (3.3-5.1); Sodium 142 mmol/L (135-145); Total Protein 6.5 g/dL (6.5-8.0)
[2025-04-11 20:33] LABS: NT Pro B Type Natriuretic Pept 51.9 pg/mL (<300)
[2025-04-11 22:00] VITALS: BP 144/85; PULSE 68; RESP 20; O2SAT 96
[2025-04-11 22:44] VITALS: BP 144/85; PULSE 68; RESP 20; TEMP -17.7; TEMP 0; O2SAT 96
[2025-04-11 22:44] LABS: Free T4 (Free Thyroxine) 1.25 ng/dL (0.71-1.85)
== END 2025-04-11 22:50 | disposition home or self-care (01) ==
PROVIDERS: Registered Nurse Emergency; Emergency Provider Emergency Medicine; PCP Internal Medicine
DX: R60.0 Localized edema (principal); M79.601 Pain in right arm; G71.02 Facioscapulohumeral muscular dystrophy
CPT/HCPCS: 36415; 80053; 81003; 83880; 84439; 84443; 84702; 85025; 93970; 99284

== ENCOUNTER → 2025-04-11 21:24 | Outpatient (BNV) | payer OTHER, SELFPAY | PROVIDERS: Emergency Provider Emergency Medicine; PCP Internal Medicine; Visit Provider Radiology Diagnostic Radiology | DX: M79.662 Pain in left lower leg (principal); M79.89 Other specified soft tissue disorders | CPT/HCPCS: 93970 ==

== ENCOUNTER 2025-04-13 16:29 | Emergency (ER) | payer OTHER, SELFPAY ==
--- NOTE | ~2025-04-13 | CT_ITS ---
CLINICAL HISTORY: Neck pain radiates to the right upper extremity CT cervical spine without contrast Comparison: None provided Findings: Reversal and moderate kyphosis of the cervical spine. Mild multilevel spondylosis with disc space narrowing, and endplate sclerosis No acute fractures or dislocations. Visualized intracranial contents are unremarkable. Soft tissues of the neck are normal. Lung apices are clear. IMPRESSION: Reversal normal cervical lordosis and moderate kyphosis. Which could be related to muscle spasm. Mild multilevel spondylosis. No evidence of acute fracture or traumatic listhesis of the cervical spine. This document has been electronically signed by: Criss Westbrook MD on 04/13/2025 19:24:05
[2025-04-13 16:32] VITALS: BP 157/97; PULSE 64; RESP 15; TEMP 36.7; O2SAT 100; BMI 18.3
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
--- OUTSIDE RECORDS SUMMARY | 2025-04-13 17:01 | XMS_ITS | Clinical Summary ---
Author Organization [employer] Address [address] [place] [address] 7[address] [place] [address] Care Team Providers Care Oral Health Therapist Name Role Phone Kalyn Salguero Unavailable Unavailable [...] Description 02/01/2025 12:00 PM EDT Office Visit [facility] DENTAL [address] [place] [address] Reba Cohen LLD Encounter for dental examination [...] 08/08/2025 12:00 PM EST Office Visit [facility] DENTAL [address] [place] [address] Cydney Cornell Health Maintenance Due Date Last [...] Most Recently Relevant to Health Maintenance Insurance DENTAL-[facility] MEDICAID STAND ADULT DENTAL - HSN FULL (MEDICAID) Care Teams Oral Health Therapist Relationship Specialty Start Date End Date Kalyn Salguero Community Health Worker 06/22/24
--- OUTSIDE RECORDS SUMMARY | 2025-04-13 17:01 | XMS_ITS | Encounter Summary ---
Author Organization [facility] Address [address] [place] [phone] Phone Care Team Providers Care Metal Mixer Name Role Phone Danny Sherman MD Primary Care Provider [phone] Hien Ramírez MD Unavailable [phone] Encounter Details Date Type Department Care Team (Late st Contact Info) Description 02/10/2023 Procedure Pass [facility] Endoscopy Department [address] [place] [address] Social History Tobacco Use Types Packs/Day Years [...] on filedocumented in this encounter Care Teams Metal Mixer Relationship Specialty Start Date End Date Danny Sherman MD [address] [place] [address] PCP - General Internal Medicine 06/03/21 Hien Ramírez MD [address] [place] [address], [facility] [address] [place] [address] [email or web address] Gastroenterology 06/03/22 documented as of this encounter Additional Source Comments The information contained in this document represents components of the legal health record. It is not the complete legal health record.[facility]
--- OUTSIDE RECORDS SUMMARY | 2025-04-13 17:01 | XMS_ITS | Encounter Summary ---
Author Organization [employer] Address [address] [facility] 7t [place] [address] Care Team Providers Care Medical Center Manager Name Role Phone Fletcher Little Unavailable Unavailable Kalyn Salguero Unavailable Unavailable Encounter Details Date Type Department Care Team (Late st Contact Info) Description 06/16/[address] [facility] Dental [address] [place] [address] Dental, Provider, DDS Social History Tobacco Use [...] Description 08/08/2025 12:00 PM EST Office Visit [address] [facility] DENTAL [address] [place] [address] Cydney Cornell documented as of this encounter Procedures Procedure Name Priority Date/Time Associated Diagnosis Comments PROPHYLAXIS - ADULT Routine 05/10/2022 1 2:00 AM EST PERIODIC ORAL EVALUATION - ESTABLISHED PATIENT Routine 05/10/2022 12:00 AM EST CASE PRESENTATION, DETAILED AND EXTENSIVE TREATMENT PLANNING Routine 05/10/2022 12:00 AM EST documented in this encounter Visit Diagnoses Not on filedocumented in this encounter Care Teams Medical Center Manager Relationship Specialty Start Date End Date Fletcher Little Community Health Worker 10/18/23 06/21/24 Kalyn Salguero Community Health Worker 06/22/24 documented as of this encounter
--- OUTSIDE RECORDS SUMMARY | 2025-04-13 17:01 | XMS_ITS ---
Author Name [facility] Organization Unknown Care Team Organization Name Specialty Phone Email Start Date End [facility] 202101/18/2022
--- OUTSIDE RECORDS SUMMARY | 2025-04-13 17:01 | XMS_ITS | Clinical Summary ---
Author Organization [facility] Address [address] [address] Phone Care Team Providers Care Draw In Hand Name Role Phone Danny Sherman MD Primary Care Provider [phone] Hien Ramírez MD Unavailable [phone] Allergies No known active allergies Medications cyanocobalamin, [...] Type Department Care Team Description 02/14/2025 Refill [facility] Medical Specialties [address] [facility] [place] [address] Benjy Doty PA-C Medication Refill from Last [...] topic Medical Devices Not on [place] [address] [place] [address] [employer] [place] [address] [place] [address] [employer] [address] [place] [address] [employer] [place] [address] [address] ACO Care Teams Draw In Hand Relationship Specialty Start Date End Date Danny Sherman MD [address] [place] [id number] PCP - General Internal Medicine 06/03/21 Hien Ramírez MD [address] [place] [address], [address] [address] [email or web address] Gastroenterology 06/03/22 Additional Source Comments The information contained in this document represents components of the legal health record. It is not the complete legal health record.[facility]
[2025-04-13 19:10] LABS: MANUAL DIFF FLAG NO
[2025-04-13 19:11] LABS: Hematocrit 36.3 % (37.0-47.0); Hemoglobin 11.2 g/dl (12.0-16.0); Imm Gran Abs Auto 0.01 X10*3/uL (0.00-0.03); Imm Gran Pct Auto 0.2 % (0.0-0.4); Lymphocytes Absolute Auto 1.6 X10*3/uL (1.2-4.9); Mean Corpuscular HGB Conc 30.9 g/dl (31.0-35.0); Mean Corpuscular Hemoglobin 27.3 pg (27.0-33.0); Mean Corpuscular Volume 88.3 fL (80.0-98.0); NRBC Abs Auto 0.000 X10*3/uL (0.0-0.012); NRBC Pct Auto 0.0 /100WBC (0.0-0.2); Platelet Count 231 X10*3/uL (160-400); Red Blood Count 4.11 X10*6/uL (4.20-5.50); White Blood Count 6.6 X10*3/uL (4.8-10.8)
[2025-04-13 19:28] LABS: Alanine Aminotransferase 28 U/L (0-31); Albumin Level 4.1 g/dL (3.5-5.0); Alkaline Phosphatase 66 U/L (39-117); Anion Gap 9 (12-20); Aspartate Amino Transferase 30 U/L (5-31); Blood Urea Nitrogen 10 mg/dL (9-16); Calcium 8.7 mg/dL (8.4-10.2); Carbon Dioxide 29 mmol/L (22-29); Chloride 105 mmol/L (96-108); Creatinine Clr Calc Pharmacy 61.9; Estimated Glomerular Filt Rate > 60; Lipase 19 U/L (8-78); Potassium 4.2 mmol/L (3.3-5.1); Sodium 139 mmol/L (135-145); Total Protein 6.1 g/dL (6.5-8.0)
[2025-04-13 19:35] LABS: Troponin-I High Sensitivity < 2.7 ng/L (<3.5-17.0)
[2025-04-13 20:52] VITALS: BP 142/89; PULSE 66; RESP 16; TEMP 36.7; O2SAT 100
[2025-04-15 22:03] LABS: Lyme Abs Screen <0.90 index
[2025-04-16 12:38] LABS: Lyme Disease DNA PCR NOT DETECTED (NOT DETECTED)
== END 2025-04-13 20:53 | disposition home or self-care (01) ==
PROVIDERS: Emergency Provider Emergency Medicine
DX: M54.12 Radiculopathy, cervical region (principal); M54.6 Pain in thoracic spine; M54.50 Low back pain, unspecified; M79.601 Pain in right arm; Z79.899 Other long term (current) drug therapy
CPT/HCPCS: 36415; 72125; 80048; 80076; 83690; 84484; 85025; 85652; 86140; 86617; 86618; 96374; 99284; J0131

== ENCOUNTER → 2025-04-13 18:32 | Outpatient (BNV) | payer OTHER, SELFPAY | PROVIDERS: Emergency Provider Emergency Medicine; Visit Provider Student in an Organized Health Care Education/Training Program | DX: M47.812 Spondylosis without myelopathy or radiculopathy, cervical region (principal) | CPT/HCPCS: 72125 ==

== ENCOUNTER → 2025-04-28 19:31 | Outpatient (BNV) | payer OTHER, SELFPAY | PROVIDERS: Visit Provider Radiology Diagnostic Radiology | DX: M47.812 Spondylosis without myelopathy or radiculopathy, cervical region (principal); M48.02 Spinal stenosis, cervical region | CPT/HCPCS: 72141 ==

== ENCOUNTER 2025-04-28 19:35 | Outpatient (REF) | payer OTHER, SELFPAY ==
--- NOTE | ~2025-04-28 | MR_ITS ---
EXAMINATION: MR CERVICAL SPINE WITHOUT CONTRAST CLINICAL INFORMATION: M 50.122. Cervical disc disorder at C5-6 with radiculopathy. COMPARISON: Correlated to CT dated April 13, 2025. TECHNIQUE: MRI of the cervical spine was obtained using routine sequences without contrast. FINDINGS: Craniocervical junction is intact. Normal position of the cerebellar tonsils. No bone marrow STIR signal abnormality. Reverse curvature apex at C3-4. Small marginal osteophyte formation and disc desiccation C5-6 and to a lesser extent C4-5, C6-7 and 64 level. Grade 1 anterolisthesis C3-4. Cervical spinal cord signal is normal. Intrinsic hyperintense T1 bone lesion at T4 likely intraosseous hemangioma. C2-3: No disc herniation. No neuroforamina stenosis. C3-4: Broad-based disc osteophyte complex formation resulting in ventral deformity of the thecal sac. Left neuroforamina narrowing. C4-5: Broad-based disc osteophyte complex formation. No central spinal canal or neuroforamina stenosis. C5-6: Right-sided disc osteophyte complex formation resulting in ventral deformity of the thecal sac. Right neuroforamina narrowing. C6-7: Broad-based disc osteophyte compresses formation. No central spinal canal or neuroforamina stenosis. C7-T1: No disc herniation. No neuroforamina stenosis. No prevertebral compartment hematoma, mass or fluid collection. Flow-void signal within the main vessels is normal. Left vertebral artery is dominant. MR/MR cervical spine wo con IMPRESSION: Multilevel cervical spondylosis C3 C7 resulting in reverse curvature/kyphotic deformity, C4-5 and mild central spinal canal and right neuroforamina and stenosis at C5-6. No cord compression, edema, and or myelopathy Electronically signed by: Jeff Gu MD 04/29/2025 07:20 AM EDT
--- OUTSIDE RECORDS SUMMARY | 2025-04-28 19:40 | XMS_ITS | Clinical Summary ---
Author Organization [facility] Address [address] [address] Phone Care Team Providers Care Logistics Loss Prevention Manager Name Role Phone Danny Shreman MD Primary Care Provider [phone] Hien Ramírez MD Unavailable [phone] Allergies No known active allergies Medications cyanocobalamin, [...] Type Department Care Team Description 02/14/2025 Refill [facility] Medical Specialties [address] [facility] [place] [address] Benjy Doty PA-C Medication Refill from Last [...] topic Medical Devices Not on file Insurance [place] [address] [employer] [place] [address] [employer] [place] [address] [employer] [place] [address] [place] [address] ACO Care Teams Logistics Loss Prevention Manager Relationship Specialty Start Date End Date Danny Sherman MD [address] [place] [address] PCP - General Internal Medicine 06/03/21 Hien Ramírez MD [address] [place] [address], [address] [address] [email or web address] Gastroenterology 06/03/22 Additional Source Comments The information contained in this document represents components of the legal health record. It is not the complete legal health record.[facility]
--- OUTSIDE RECORDS SUMMARY | 2025-04-28 19:40 | XMS_ITS | Clinical Summary ---
Author Organization [employer] Address [address] [place] [address] 7 [place] [address] Care Team Providers Care Summer Child Caregiver Name Role Phone Kalyn Salguero Unavailable Unavailable [...] Encounters Date Type Department Care Team Description 04/22/2025 4:00 PM EDT Office Visit [facility] DENTAL [address] [place] [address] Bairon Michael DDS 02/01/2025 12:00 PM EDT Office Visit [facility] DENTAL [address] [place] [address] Reba Cohen LLD Encounter for dental examination [...] Sign Reading Time Taken Comments Blood Pressure 154/93 04/22/2025 4:09 PM EDT Pulse 71 04/22/2025 4:09 PM EDT Temperature - - Respiratory Rate - - Oxygen Saturation - - Inhaled Oxygen Concentration - - Weight - - Height - - Body Mass Index - - Plan of Treatment Upcoming Encounters Date Type Department Care Team (Late st Contact Info) Description 08/08/2025 12:00 PM EST Office Visit [place] [facility] DENTAL [address] [place] [id number] Cydney Cornell Health Maintenance Due Date Last [...] 2010 Mammogram 2020 Dental X-Ray: Full Mouth 04/18/202404/17/ 021, 05/11/2013, 01/07/2007, Additional history exists Influenza [...] Procedure Name Priority Date/Time Associated Diagnosis Comments 6 INTRAORAL - PERIAPICAL FIRST RADIOGRAPHIC IMAGE Routine 04/22/2025 4:00 PM EDT LIMITED ORAL EVALUATION - PROBLEM FOCUSED Routine 04/22/2025 4:00 PM EDT ORAL HYGIENE INSTRUCTIONS Routine 2024 12:00 PM EDT BITEWINGS - 4 RADIOGRAPHIC IMAGES Routine 02/01/2025 12:00 PM EDT Full PROPHYLAXIS - ADULT Routine 025 12:00 PM EDT PERIODIC ORAL EVALUATION - ESTABLISHED PATIENT Routine 02/01/2025 12:00 PM EDT INTRAORAL - COMPLETE SERIES OF RADIOGRAPHIC IMAGES Routine 04/17/2021 12:00 AM EDT from Last 3 Months or Most Recently Relevant to Health Maintenance Insurance DENTAL-[facility] MEDICAID STAND ADULT DENTAL - HSN FULL (MEDICAID) Care Teams Summer Child Caregiver Relationship Specialty Start Date End Date Kalyn Salguero Community Health Worker 06/22/24
--- OUTSIDE RECORDS SUMMARY | 2025-04-28 19:40 | XMS_ITS | Encounter Summary ---
Author Organization [facility] Address [address] [place] [address] Phone Care Team Providers Care Scroll Machine Operator Name Role Phone Danny Sherman MD Primary Care Provider [phone] Hein Ramírez MD Unavailable [phone] Encounter Details Date Type Department Care Team (Late st Contact Info) Description 02/10/2023 Procedure Pass [facility] Endoscopy Department [address] [place] [address] Social History Tobacco Use Types Packs/Day Years [...] on filedocumented in this encounter Care Teams Scroll Machine Operator Relationship Specialty Start Date End Date Danny Sherman MD [address] [place] [address] PCP - General Internal Medicine 06/03/21 Hien Ramírez MD [address] [place] [address], [address] [place] [address] [email or web address] Gastroenterology 06/03/22 documented as of this encounter Additional Source Comments The information contained in this document represents components of the legal health record. It is not the complete legal health record.[facility]
--- OUTSIDE RECORDS SUMMARY | 2025-04-28 19:40 | XMS_ITS | Encounter Summary ---
Author Organization [facility] Address [address] [facility] 7[address] [place] [address] Care Team Providers Care Systems Integration Manager Name Role Phone Fletcher Little Unavailable Unavailable Kalyn Salguero Unavailable Unavailable Encounter Details Date Type Department Care Team (Late st Contact Info) Description 06/16/2022 Abstract [facility] [address] [place] [address] Dental, Provider, DDS Social History Tobacco Use [...] Description 08/08/2025 12:00 PM EST Office Visit [facility] D[facility] [address] [place] [address] Cydney Cornell documented as of this encounter Procedures Procedure Name Priority Date/Time Associated Diagnosis Comments PROPHYLAXIS - ADULT Routine 05/10/2022 1 2:00 AM EST PERIODIC ORAL EVALUATION - ESTABLISHED PATIENT Routine 05/10/2022 12:00 AM EST CASE PRESENTATION, DETAILED AND EXTENSIVE TREATMENT PLANNING Routine 05/10/2022 12:00 AM EST documented in this encounter Visit Diagnoses Not on filedocumented in this encounter Care Teams Systems Integration Manager Relationship Specialty Start Date End Date Fletcher Little Community Health Worker 10/18/23 06/21/24 Kalyn Salguero Community Health Worker 06/22/24 documented as of this encounter
== END 2025-04-28 19:36 | disposition home or self-care (01) ==
LOC: HO.MRI 19:35
PROVIDERS: Visit Provider Psychiatry & Neurology Neurology
DX: M50.122 Cervical disc disorder at C5-C6 level with radiculopathy (principal)
CPT/HCPCS: 72141

== ENCOUNTER 2025-05-09 14:15 | Outpatient (AMB) | payer OTHER, SELFPAY ==
--- NOTE | 2025-05-09 14:17 | A.OFFVIS_ITS ---
Vital Signs 05/09/25 14:22 Height 5 ft 2 in BMI Reason not done Patient refused/unable BP 125/83 Blood Pressure Location Lt brachial Position Sitting Pulse 58 Pulse Source Pulse Oximeter Pulse Oximetry (%) 100 Oxygen Delivery Method Room Air Intake Visit Reasons: rotator cuff tear or rupture of right shoulder Intake Note: Pain today 8/10 resting, 10/10 with movement. Loss Prevention Consultant Required: No Accompanied by: Self / Same As Patient Allergies Seasonal Allergies Allergy (Mild, Verified 05/09/25 14:22) unknown gabapentin Adverse Reaction (Unknown, Verified 05/09/25 14:22) Swelling HPI Comments Details: The patient is a 44-year-old female presenting with acute neck pain with right sided cervical radiculopathy. The pain has been present for approximately four to six weeks and is described as radiating from the neck through the right shoulder and down the arm. The patient reports that the pain is excruciating and interferes with daily activities, work and sleep. Patient leads a very physically active lifestyle and work, including dancing, ballet, running, jumping, and rock climbing. The patient has undergone an MRI of the neck, which revealed multilevel cervical spondylosis C3 through C7 resulting in reverse curvature/kyphotic deformity, C4-5 and mild central spinal canal and right neuroforamina and stenosis at C5-6 with disc osteophyte complex formation, consistent with her symptoms of cervicalgia and radiculopathy. She has also had a CT scan in the emergency department and x-rays, which showed no acute injuries. Physical therapy has been initiated, with six sessions completed at [facility] in [place] with no improvement in her pain or functioning so far. She reports [facility] and was told there was no injuries per right shoulder xray, this report is not available today. The patient has a history of muscular dystrophy, specifically fascioscapulohumeral muscular dystrophy, which affects the upper body and contributes to weakness, particularly in the left arm. She also has a history of B12 deficiency, migraines, anxiety, insomnia, and posttraumatic stress disorder. The patient denies any history of neck surgery or injections for this injury. - Onset: Pain began approximately four to six weeks ago. - Quality: Constant excruciating pain, pulsing, throbbing, and shooting, numbness, tingling, pins and needles, weakness, sharp - Location: Originates in the neck, radiates through the right shoulder and down the arm. Rated at 8-10/10 - Exacerbating factors: Movement of the neck, particularly flexion and extension. - Relieving factors: Heat, activity modifications - Interference: Affects daily activities and sleep. - Affect: Pain significantly impacts mood and psychological wellbeing, contributing to anxiety and insomnia. - Analgesia: Previously tried gabapentin, tramadol, cyclobenzaprine, tizanidine, and meloxicam with minimal relief and significant side effects. - Adverse Effects: Experienced edema with gabapentin and cognitive impairment with oxycodone. - Activities of Daily Living: Pain limits ability to lift more than 10 pounds and affects daily activities and sleep. - Aberrant Drug Related Behaviors: No evidence of medication misuse or abuse. [facility] Medical History (Updated 05/12/25 @ 19:22 by MOHSEN Alvarez) Cervical disc disorder at C5-C6 level with radiculopathy Muscular dystrophy, facioscapulohumeral Migraine without aura, not intractable, without status migrainosus Anxiety Shortness of breath Surgical History History of esophagogastroduodenoscopy Family History Mother Hypothyroid Allergies Father Multiple myeloma High blood pressure Coronary stent patent Obesity Cancer Brother Allergies Paternal Grandfather Colon cancer Social History Household Members: Family Alcohol intake: current Alcohol intake frequency: does not drink Second Hand Smoke Exposure: Yes (as a child) Review of Systems Const Details: - Musculoskeletal: Reports pain radiating from neck to right shoulder and arm, weakness in left arm, and hypermobility. - Neurological: Reports migraines and numbness in the arm. - Psychiatric: Reports anxiety, insomnia, and posttraumatic stress disorder. - General: Denies smoking and alcohol use, reports caffeine intake of 400 mg daily. All systems reviewed & are unremarkable except as noted in HPI and below Physical Exam Vital Signs: Last Vital Signs Pulse 58 05/09/25 14:22 BP 125/83 05/09/25 14:22 Pulse Ox 100 05/09/25 14:22 Oxygen Delivery Method Room Air 05/09/25 14:22 General: Appears afebrile. Alert and oriented. Mood and affect appropriate. Follows and participates in conversation appropriately. Respiratory effort is unlabored. No cough. Able to transition from sit to stand unassisted. Ambulates with bilaterally normal heel strike and toe off. Neck Other: Painful range of motion on flexion and extension, hypermobility noted. Spurling compression test equivocal. Elvey's tension test positive on the right, with radiation of pain from neck to elbow. Lhermitte's test was negative. DTR intact, +2 and symmetrical. Patient demonstrated 5/5 right 4/5 left motor strength of bilateral upper extremities. 2 + radial pulses. Significant tightness throughout lower and upper trapezius muscles. No paravertebral tenderness over facet joints bilaterally. Multiple taut bands palpated throughout bilateral upper trapezius muscles. Neck: Yes normal visual inspection, Yes full ROM, Yes no lymphadenopathy, Yes supple, No anterior neck swelling, Yes no JVD, No prominent supraclavicular fat pad and No prominent dorsocervical fat pad Back/Spine/Pelvis Cervical Spine: cervical ROM normal, No collar present, No Lhermitte's sign positive, cervical muscular tenderness, pain with cervical ROM, No Cervical spine scars present, cervical spasm, No Cervical spine tenderness and No step off deformity Thoracic/Lumbar Spine: thoracic and lumbar spine normal to inspection, No Thoracic/lumbar spine scar(s), thoraco-lumbar ROM normal, No thoracic spinal tenderness and No lumbar spinal tenderness Results Reviewed Results Reviewed: MR CERVICAL SPINE WITHOUT CONTRAST 04/28/25 CLINICAL INFORMATION: M 50.122. Cervical disc disorder at C5-6 with radiculopathy. COMPARISON: Correlated to CT dated April 13, 2025. TECHNIQUE: MRI of the cervical spine was obtained using routine sequences without contrast. FINDINGS: Craniocervical junction is intact. Normal position of the cerebellar tonsils. No bone marrow STIR signal abnormality. Reverse curvature apex at C3-4. Small marginal osteophyte formation and disc desiccation C5-6 and to a lesser extent C4-5, C6-7 and 64 level. Grade 1 anterolisthesis C3-4. Cervical spinal cord signal is normal. Intrinsic hyperintense T1 bone lesion at T4 likely intraosseous hemangioma. C2-3: No disc herniation. No neuroforamina stenosis. C3-4: Broad-based disc osteophyte complex formation resulting in ventral deformity of the thecal sac. Left neuroforamina narrowing. C4-5: Broad-based disc osteophyte complex formation. No central spinal canal or neuroforamina stenosis. C5-6: Right-sided disc osteophyte complex formation resulting in ventral deformity of the thecal sac. Right neuroforamina narrowing. C6-7: Broad-based disc osteophyte compresses formation. No central spinal canal or neuroforamina stenosis. C7-T1: No disc herniation. No neuroforamina stenosis. No prevertebral compartment hematoma, mass or fluid collection. Flow-void signal within the main vessels is normal. Left vertebral artery is dominant. IMPRESSION: Multilevel cervical spondylosis C3 C7 resulting in reverse curvature/kyphotic deformity, C4-5 and mild central spinal canal and right neuroforamina and stenosis at C5-6. No cord compression, edema, and or myelopathy Assessment & Plan Assessment & Plan (1) Cervical disc disorder at C5-C6 level with radiculopathy: Code(s): M50.122 - Cervical disc disorder at C5-C6 level with radiculopathy Category: Medical (2) Cervicalgia: Code(s): M54.2 - Cervicalgia Category: Medical (3) Muscle spasms of neck: Code(s): M62.838 - Other muscle spasm Category: Medical (4) Cervical spondylosis: Code(s): M47.812 - Spondylosis without myelopathy or radiculopathy, cervical region Category: Medical Plan The plan for managing the patient's cervical radiculopathy includes scheduling an interlaminar epidural steroid injection at the C5-C6 level with local and fluoroscopy to alleviate pain and improve functioning. Expectations, risks and benefits were reviewed. Patient is aware she will be contacted to schedule this procedure. The patient will continue with physical therapy at [facility] in [place], [place]. Patient is advised against chiropractic adjustments due to the risk of exacerbating the condition, particularly with the presence of bone spurs. If the epidural steroid injection provides minimal relief, a referral to a Neurosurgeon for further evaluation will be considered. All questions and concerns have been answered and patient agreed with the treatment plan. Follow up after injection and sooner as needed. Patient was informed and verbally consented to the use of an ambient scribe for clinic note documentation during this visit. Coding Level of Care Code New Pt Level 4 (68210) Diagnoses Cervical disc disorder at C5-C6 level with radiculopathy M50.122 Cervicalgia M54.2 Muscle spasms of neck M62.838 Cervical spondylosis M47.812
[2025-05-09 14:22] VITALS: BP 125/83; PULSE 58; O2SAT 100
--- OUTSIDE RECORDS SUMMARY | 2025-05-09 17:25 | XMS_ITS | Clinical Summary ---
Author Organization [facility] Address [address] [address] Phone Care Team Providers Care Reading Recovery Teacher Name Role Phone Danny Sherman MD Primary Care Provider Hien Ramírez MD Unavailable [phone] Allergies No known active allergies Medications cyanocobalamin, [...] Type Department Care Team Description 02/14/2025 Refill [facility] Specialties [address] [facility] [place] [address] Benjy Doty PA-C Medication Refill from Last [...] topic Medical Devices Not on file Insurance [address] [address] [employer] [place] [address] [place] [address] [employer] [place] [address] [employer] [place] [place] [address] [place] [address] ACO Care Teams Reading Recovery Teacher Relationship Specialty Start Date End Date Danny Sherman MD [address] [place] [id number] PCP - General Internal Medicine 06/03/21 Hien Ramírez MD [address] [place] [address], [address] [address] [email or web address] [email or web address] 06/03/22 Additional Source Comments The information contained in this document represents components of the legal health record. It is not the complete legal health record.[facility]
--- OUTSIDE RECORDS SUMMARY | 2025-05-09 17:25 | XMS_ITS | Clinical Summary ---
Author Organization [employer] Address [address] [place] [address] [address] [place] [address] Care Team Providers Care Medical Services Coordinator Name Role Phone Kalyn Salguero Unavailable Unavailable [...] Description 04/22/2025 4:00 PM EDT Office Visit [facility] DENTAL [address] [place] [address] Bairon Michael DDS from Last 3 Months Social History Tobacco [...] 08/08/2025 12:00 PM EST Office Visit [facility] D[facility] [address] [place] [address] Cydney Cornell Health Maintenance Due Date Last [...] PROBLEM FOCUSED Routine 04/22/2025 4:00 PM EDT Full PROPHYLAXIS - ADULT Routine 025 12:00 PM EDT BITEWINGS - 4 RADIOGRAPHIC IMAGES Routine 02/01/2025 12:00 PM EDT PERIODIC ORAL EVALUATION - ESTABLISHED PATIENT Routine 02/01/2025 12:00 PM EDT INTRAORAL - COMPLETE SERIES OF RADIOGRAPHIC IMAGES Routine 04/17/2021 12:00 AM EDT from Last 3 Months or Most Recently Relevant to Health Maintenance Insurance DENTAL-[facility] MEDICAID STAND ADULT DENTAL - HSN FULL (MEDICAID) Care Teams Medical Services Coordinator Relationship Specialty Start Date End Date Kalyn Salguero Community Health Worker 06/22/24
--- OUTSIDE RECORDS SUMMARY | 2025-05-09 17:25 | XMS_ITS | Encounter Summary ---
Author Organization [facility] Address [address] [place] [address] Phone Care Team Providers Care Process Improvement Engineer Name Role Phone Danny Sherman MD Primary Care Provider [phone] Hien Ramírez MD Unavailable [phone] Encounter Details Date Type Department Care Team (Late st Contact Info) Description 02/10/2023 Procedure Pass [facility] Endoscopy Department [address] [place] [address] Social History Tobacco Use Types Packs/Day Years [...] on filedocumented in this encounter Care Teams Process Improvement Engineer Relationship Specialty Start Date End Date Danny Sherman MD [address] [place] [id number] PCP - General Internal Medicine 06/03/21 Hien Ramírez MD [address] [place] [address], [facility] [address] [place] [address] [email or web address] 06/03/22 documented as of this encounter Additional Source Comments The information contained in this document represents components of the legal health record. It is not the complete legal health record.[facility]
--- OUTSIDE RECORDS SUMMARY | 2025-05-09 17:25 | XMS_ITS | Encounter Summary ---
Author Organization [employer] Address [address] [facility] 7t [place] [address] Care Team Providers Care Implementation Engineer Name Role Phone Fletcher Little Unavailable Unavailable Kalyn Salguero Unavailable Unavailable Encounter Details Date Type Department Care Team (Late st Contact Info) Description 06/16/[address] [facility] [address] [place] [address] Dental, Provider, DDS Social History Tobacco Use [...] Description 08/08/2025 12:00 PM EST Office [facility] D[facility]AL [address] [place] [address] Cydney Cornell documented as of this encounter Procedures Procedure Name Priority Date/Time Associated Diagnosis Comments PROPHYLAXIS - ADULT Routine 05/10/2022 1 2:00 AM EST PERIODIC ORAL EVALUATION - ESTABLISHED PATIENT Routine 05/10/2022 12:00 AM EST CASE PRESENTATION, DETAILED AND EXTENSIVE TREATMENT PLANNING Routine 05/10/2022 12:00 AM EST documented in this encounter Visit Diagnoses Not on filedocumented in this encounter Care Teams Implementation Engineer Relationship Specialty Start Date End Date Fletcher Little Community Health Worker 10/18/23 06/21/24 Kalyn Salguero Community Health Worker 06/22/24 documented as of this encounter
== END 2025-05-09 14:47 | disposition home or self-care (01) ==
PROVIDERS: Referring Provider Psychiatry & Neurology Neurology; Visit Provider Nurse Practitioner Family
DX: M50.122 Cervical disc disorder at C5-C6 level with radiculopathy (principal); M62.838 Other muscle spasm; M47.812 Spondylosis without myelopathy or radiculopathy, cervical region
CPT/HCPCS: 99204

== ENCOUNTER → 2025-05-09 14:15 | Outpatient (BNVA) | payer OTHER, SELFPAY | PROVIDERS: Referring Provider Psychiatry & Neurology Neurology; Visit Provider Nurse Practitioner Family | DX: M50.122 Cervical disc disorder at C5-C6 level with radiculopathy (principal); M62.838 Other muscle spasm; M47.812 Spondylosis without myelopathy or radiculopathy, cervical region | CPT/HCPCS: 99202 ==

== ENCOUNTER 2025-06-05 12:22 | Outpatient (REF) | payer OTHER, SELFPAY ==
[2025-06-05 13:40] LABS: MANUAL DIFF FLAG NO
[2025-06-05 14:21] LABS: Hematocrit 33.4 % (37.0-47.0); Hemoglobin 10.3 g/dl (12.0-16.0); Imm Gran Abs Auto 0.01 X10*3/uL (0.00-0.03); Imm Gran Pct Auto 0.2 % (0.0-0.4); Lymphocytes Absolute Auto 1.2 X10*3/uL (1.2-4.9); Mean Corpuscular HGB Conc 30.8 g/dl (31.0-35.0); Mean Corpuscular Hemoglobin 26.5 pg (27.0-33.0); Mean Corpuscular Volume 86.1 fL (80.0-98.0); NRBC Abs Auto 0.000 X10*3/uL (0.0-0.012); NRBC Pct Auto 0.0 /100WBC (0.0-0.2); Platelet Count 283 X10*3/uL (160-400); Red Blood Count 3.88 X10*6/uL (4.20-5.50); White Blood Count 4.9 X10*3/uL (4.8-10.8)
[2025-06-05 15:20] LABS: Iron 32 mcg/dL (30-160); Percent Iron Saturation 9 % (15-50); Total Iron Binding Capacity 347 mcg/dL (228-428); Unsaturated Iron Binding 315 ug/dL
== END 2025-06-05 12:23 | disposition home or self-care (01) ==
LOC: HO.LAB 12:22
PROVIDERS: PCP Internal Medicine; Visit Provider Psychiatry & Neurology Neurology
DX: G47.01 Insomnia due to medical condition (principal); M47.812 Spondylosis without myelopathy or radiculopathy, cervical region; G43.909 Migraine, unspecified, not intractable, without status migrainosus; G71.02 Facioscapulohumeral muscular dystrophy; F41.9 Anxiety disorder, unspecified; D50.9 Iron deficiency anemia, unspecified; G25.82 Stiff-man syndrome; Z79.899 Other long term (current) drug therapy
CPT/HCPCS: 83540; 85025; 99212

== ENCOUNTER 2025-06-05 12:22 | Outpatient (AMB) | payer OTHER, SELFPAY ==
--- NOTE | 2025-06-05 12:36 | MHC.OFFVIS ---
Intake Visit Reasons: 6 Months insomnia Allergies Seasonal Allergies Allergy (Mild, Verified 05/09/25 14:22) unknown gabapentin Adverse Reaction (Unknown, Verified 05/09/25 14:22) Swelling HPI Comments Details: 44 yo woman with B12 def, migraine, anxiety, insomnia, and fascioscapular muscular dystrophy. She had EMG/NCS done by Dr. Lange at [facility] who found subtle abnormalities in left infraspinatous, bicepts, deltoid, ext dig, and flexor carpi ulnaris. [place] [facility] told that she might not have this condition. She was a runner and was walking or running miles a day. She is presenting for follow-up of chronic pain and neurological conditions. The patient reports persistent, significant neck pain and is scheduled for an epidural steroid injection on the , which was scheduled through pain management. The patient is also undergoing physical therapy, which has not been helpful. The patient has previously tried pain medications but discontinued them due to intolerable side effects and lack of efficacy, and has also stopped taking tizanidine and cyclobenzaprine. The patient has a history of migraines, which are triggered by blinking LED Maybee lights. For management, the patient takes propranolol for prevention and has rizatriptan for acute attacks. The patient is also taking escitalopram. Sleep quality is poor, described by the patient as a nightmare. The patient takes zolpidem, which provides approximately 4 hours of sleep per night. The patient has a diagnosis of an unspecified type of muscular dystrophy and reports hypermobility. Previous genetic testing for the condition was attempted but was not completed. There is a history of mild anemia, for which the patient has received iron infusions in the past as oral iron was not effective. The patient is overdue for hematology follow-up, as the patient's previous relocation services specialist at the [facility] [place] has left the practice. [facility] Medical History (Updated 06/05/25 @ 12:40 by Kylie Velasco MD) Migraine without aura, not intractable, without status migrainosus Cervical disc disorder at C5-C6 level with radiculopathy Muscular dystrophy, facioscapulohumeral Anxiety Shortness of breath Surgical History History of esophagogastroduodenoscopy Family History Mother Hypothyroid Allergies Father Multiple myeloma High blood pressure Coronary stent patent Obesity Cancer Brother Allergies Paternal Grandfather Colon cancer Social History Household Members: Family Alcohol intake: current Alcohol intake frequency: does not drink Second Hand Smoke Exposure: Yes (as a child) Review of Systems Narrative - Neurological: Reports significant neck pain, numbness, tingling, and stiffness. - Reports migraines, which can be triggered by flashing lights. - Musculoskeletal: Reports neck pain and joint hypermobility. - Psychiatric: Reports poor sleep. - Constitutional: Denies other complaints, stating that otherwise the patient feels fine. Physical Exam Neuro Other: Mental Status: Alert and oriented to person, place, and time. Normal attention. Normal spontaneous speech, fluency, and comprehension. No obvious issues with mood and memory. Affect is appropriate. Cranial Nerves: CN II: Visual nielsen full to confrontation, visual acuity intact. CN III, IV, : Pupils equal, round, reactive to light and accommodation. Extraocular movements are normal. CN V: Facial sensation is normal. CN VII: Facial movements symmetrical. CN VIII: Hearing intact to bedside conversation is normal. CN IX, X: Palate elevates symmetrically. CN XI: Shoulder shrug and head turn symmetrical. CN XII: Tongue midline without atrophy or fasciculations. Relatively stiff posture. Extrapyramidal: Full facial expressions and blinking. No rigidity. Movements are appropriate with no tremor or abnormality. Speech: Normal; no dysarthria or tremor. Assessment & Plan Assessment & Plan (1) Cervical spondylosis: Comment: [place] [facility] [place] Reverse curvature MRI C spine WO at in November 2015: [place] Code(s): M47.812 - Spondylosis without myelopathy or radiculopathy, cervical region Category: Medical (2) Migraine without aura, not intractable, without status migrainosus: Code(s): G43.009 - Migraine without aura, not intractable, without status migrainosus Category: Medical Plan: MRI brain WO at [facility] in Apr 2021: WNL CTA brain at [facility] in Apr 2021: WNL EKG at [facility] in 2020: WNL Chest XR at [place] in 2020: WNL MRI brain WO at [facility] in January 2016: [place] MRI brain WO at in Oct 2014: [place] (3) Muscular dystrophy, facioscapulohumeral: Comment: Meds tried for insomnia: Trazodone, Temazepam EMG/NCS MICHAEL ext by Dr. Lange at [facility] in Jun 2021: mild abnormalities in left side suggestive of myopathy, early CTS NCV/EMG UE at [facility] in May 2021: No sign of neuropathy was noted on this test. Labs at [place] in 2020: Covid neg, Lyme neg, CBC ok, B12 <150, TSH 3.14, SANTOSH ok, ACh R Ab neg, CPK 38 CT brain WO at [place] in Apr 2021: WNL Code(s): G71.02 - Facioscapulohumeral muscular dystrophy Category: Medical (4) Insomnia: Code(s): G47.00 - Insomnia, unspecified Category: Medical Qualifiers: Insomnia type: due to medical condition Qualified Code(s): G47.01 - Insomnia due to medical condition (5) Anxiety: Code(s): F41.9 - Anxiety disorder, unspecified Category: Medical Plan Impression: a: Muscular dystrophy, though it has exact nature is not clear b: Migraine w/o aura c: Insomnia d: Anxiety 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 f: Iron def anemia Rec: a: Propranalol 20mg bid for migraine management b: Rizatriptan 10mg one a day as needed for headache c: Zolpidem ER 12.5 mg one at bedtime, as needed d: Escitaloprim 20mg one a day for anxiety e: CBC an iron profile f: Antibody tests to r/o Stiff person syndrome Orders: Orders Other Ref Test - [facility] Today 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 Complete Blood Count Auto Diff Today D50.9 - Iron deficiency anemia, unspecified IRON PROFILE Today D50.9 - Iron deficiency anemia, unspecified Medications: New cyclobenzaprine 5 mg PO BEDTIME 30 tabs 0RF Changed From rizatriptan 10 mg PO To rizatriptan 10 mg orally one a day as needed; 7 tabs 5RF Refilled propranolol 20 mg PO BID 180 tabs 0RF 90 days zolpidem ER 12.5 mg PO BEDTIME PRN 90 tabs 0RF insomnia escitalopram oxalate 20 mg PO DAILY 90 tabs 0RF Coding Level of Care Code Est Pt Level 4 (11680) Diagnoses Cervical spondylosis M47.812 Migraine without aura, not intractable, without status migrainosus G43.009 Muscular dystrophy, facioscapulohumeral G71.02 Insomnia due to medical condition G47.01 Insomnia type: due to medical condition Anxiety F41.9
--- OUTSIDE RECORDS SUMMARY | 2025-06-05 14:41 | XMS_ITS | Clinical Summary ---
Author Organization [facility] Address [address] [place] [id number] Phone Care Team Providers Care Completion Supervisor Name Role Phone Danny Sherman MD Primary Care Provider [phone] Hien Ramírez MD Unavailable [phone] Allergies No known active allergies Medications cyanocobalamin, [...] A DAY 180 tablet 1 02/15/2025 Active Social History Tobacco Use Types Packs/Day Years [...] topic Medical Devices Not on file [place] [address] [employer] [place] [address] [place] [address] [place] [address] [place] [address] [employer] Care Teams Completion Supervisor Relationship Specialty Start Date End Date Danny Sherman MD [address] [place] [id number] PCP - General Internal Medicine 06/03/21 Hien Ramírez MD [address] [place] [address], [address] [place] [address] [email or web address] Gastroenterology 06/03/22 Additional Source Comments The information contained in this document represents components of the legal health record. It is not the complete legal health record.[facility]
--- OUTSIDE RECORDS SUMMARY | 2025-06-05 14:41 | XMS_ITS | Encounter Summary ---
Author Organization [facility] Address [address] [place] [phone] Phone Care Team Providers Care Toggler Name Role Phone Danny Sherman MD Primary Care Provider [phone] Hien Ramírez MD Unavailable [phone] Encounter Details Date Type Department Care Team (Late st Contact Info) Description 02/10/2023 Procedure Pass [facility] Endoscopy Department [address] [place] [address] Social History Tobacco Use Types Packs/Day Years [...] on filedocumented in this encounter Care Teams Toggler Relationship Specialty Start Date End Date Danny Sherman MD [address] [place] [id number] PCP - General Internal Medicine 06/03/21 Hien Ramírez MD [address] [place] [address], [facility] [address] [place] [address] [email or web address] [email or web address] 06/03/22 documented as of this encounter Additional Source Comments The information contained in this document represents components of the legal health record. It is not the complete legal health record.[facility]
--- OUTSIDE RECORDS SUMMARY | 2025-06-05 14:41 | XMS_ITS | Clinical Summary ---
Author Organization [employer] Address [address] [place] [address] [address] [place] [address] Care Team Providers Care Diamond Broker Name Role Phone Kalyn Salguero Unavailable Unavailable [...] Description 04/22/2025 4:00 PM EDT Office Visit [facility] DENTAL [address] [place] [address] Bairon Michael DDS from Last 3 Months [...] Office Visit [facility] [address] [place] [address] Cydney Cornell Health Maintenance Due Date Last [...] 04/18/2024 021, 05/11/2013, 01/07/2007, Additional history exists COVID-19 Vaccine ( season) 2025 08/03/2024, 04/15/2023, 03/19/2022, Additional history exists Influenza Vaccine (#1) 2025 [...] older (1 - 1-dose 75+ series) 09/09/2055 HIB Vaccines Aged Out No longer eligi [...] Most Recently Relevant to Health Maintenance Insurance [facility]AL-[facility] MEDICAID STAND ADULT DENTAL - HSN FULL (MEDICAID) Care Teams Diamond Broker Relationship Specialty Start Date End Date Kalyn Salguero Community Health Worker 06/22/24
--- OUTSIDE RECORDS SUMMARY | 2025-06-05 14:41 | XMS_ITS | Encounter Summary ---
Author Organization [employer] Address [address] [facility] [address] [place] [address] Care Team Providers Care Sustainable Design Consultant Name Role Phone Fletcher Little Unavailable Unavailable Kalyn Salguero Unavailable Unavailable Encounter Details Date Type Department Care Team (Late st Contact Info) Description 06/16/2022 Abstract [facility] Dental [address] [place] [address] Dental, Provider, DDS Social History Tobacco Use [...] Description 08/08/2025 12:00 PM EST Office Visit [facility] [address] [place] [address] Cydney Cornell documented as of this encounter Procedures Procedure Name Priority Date/Time Associated Diagnosis Comments PROPHYLAXIS - ADULT Routine 05/10/2022 1 2:00 AM EST PERIODIC ORAL EVALUATION - ESTABLISHED PATIENT Routine 05/10/2022 12:00 AM EST CASE PRESENTATION, DETAILED AND EXTENSIVE TREATMENT PLANNING Routine 05/10/2022 12:00 AM EST documented in this encounter Visit Diagnoses Not on filedocumented in this encounter Care Teams Sustainable Design Consultant Relationship Specialty Start Date End Date Fletcher Little Community Health Worker 10/18/23 06/21/24 Kalyn Salguero Community Health Worker 06/22/24 documented as of this encounter
== END 2025-06-05 12:59 | disposition home or self-care (01) ==
LOC: HO.HSM 12:23
PROVIDERS: PCP Internal Medicine; Visit Provider Psychiatry & Neurology Neurology
DX: M47.812 Spondylosis without myelopathy or radiculopathy, cervical region (principal); G43.009 Migraine without aura, not intractable, without status migrainosus; G71.02 Facioscapulohumeral muscular dystrophy; G47.01 Insomnia due to medical condition; F41.9 Anxiety disorder, unspecified
CPT/HCPCS: 99214